=== PATIENT | female | born 2000 | race Hispanic/Latino ===

== ENCOUNTER 2022-11-20 23:29 | Emergency (ER) | payer SELFPAY ==
[2022-11-20 23:36] VITALS: BP 112/72; PULSE 72; RESP 14; TEMP 36.8; O2SAT 100
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
[2022-11-21 01:27] LABS: Basophils Percent Auto 0.3 % (0.2-1.2); Eosinophils Absolute Auto 0.1 K/mm3 (0-0.3); Hematocrit 40.3 % (37.0-47.0); Hemoglobin 14.1 g/dL (12.0-15.0); Immature Granulocyte Absolute 0.02 K/mm3 (0.00-0.031); Immature Granulocyte Percent A 0.3 % (0-0.5); Lymphocytes Absolute Auto 1.69 K/mm3 (0.9-3.2); Lymphocytes Percent Auto 21.9 % (18.3-44.2); Mean Corpuscular Hemoglobin 31.5 pg (26-34); Mean Corpuscular Volume 90.2 fl (80-100); Mean Platelet Volume 10.5 fl (7.4-10.4); Monocytes Absolute Auto 0.5 K/mm3 (0.1-0.6); Monocytes Percent Auto 6.9 % (2.6-8.5); Neutrophils Absolute Auto 5.4 K/mm3 (1.3-6.7); Neutrophils Percent Auto 69.6 % (45.5-73.1); Platelet Count Result 216 k/mm3 (150-375); Red Blood Count 4.47 M/mm3 (4.2-5.4); Red Cell Distribution Width 12.2 % (11.5-14.5); White Blood Count 7.7 K/mm3 (4.5-10.0)
[2022-11-21 01:42] LABS: Anion Gap 10 mmol/L (8-16); Blood Urea Nitrogen 13 mg/dL (7-17); Calcium 8.9 mg/dL (8.4-10.2); Carbon Dioxide 24 mmol/L (22-30); Chloride 105 mmol/L (98-107); Estimated CRCL calculation 116 ml/min; Estimated Glomerular Filt Rate > 60; Glucose 90 mg/dL (65-110); Potassium 3.4 mmol/L (3.4-5.0); Sodium 139 mmol/L (137-145)
[2022-11-21 01:43] LABS: Appearance Urine Cloudy (Clear); Bilirubin Urine Negative (Negative); Blood Urine 3+ (Negative); Color Urine Yellow (Yellow); Glucose Urine UA Negative (Negative); Ketones Urine Negative (Negative); Leukocyte Esterase Ur 1+ LEU/UL (Negative); Nitrate Urine Negative (Negative); Protein Urine 1+ mg/dL (Negative); Specific Grav Ur 1.025 (1.001-1.035); Urobilinogen Urine 0.2 mg/dL (<2.0)
[2022-11-21 01:49] LABS: Mucus Urine Rare /lpf; Squamous Epithelial Cell Urine Many /hpf (Few); WBC Urine 51-75 /hpf
[2022-11-21 02:04] LABS: Influenza A QL RT-PCR Negative (Negative); Influenza B QL RT-PCR Negative (Negative); SARS-CoV-2 RNA PCR Negative
[2022-11-21 02:16] LABS: Add Urine Microscopic? YES
[2022-11-21 02:34] LABS: Acetaminophen < 10 ug/mL (10-30); Ethanol < 10 mg/dL (<10); Salicylate < 1.0 mg/dL (2-20)
[2022-11-21 02:40] LABS: Amphetamine Screen Urine Negative (Negative); Barbiturate Screen Urine Negative (Negative); Benzodiazepines Screen Urine Negative (Negative); Cannabinoid Screen Urine Negative (Negative); Cocaine Screen Urine Negative (Negative); Methadone Screen Urine Negative (Negative); Opiate Screen Urine Negative (Negative); Phencyclidine Screen Urine Negative (Negative)
--- NOTE | 2022-11-21 02:59 | PC.NURSE ---
alberto jackscre[employer] worker called to evaluate patient
[2022-11-21 03:08] VITALS: BP 109/69; PULSE 77; RESP 18; TEMP 36.6; O2SAT 99
--- NOTE | 2022-11-21 03:08 | PC.NURSE ---
Pt resting comfortably inbed, Updted pt on plan of care, sitter at bedside. Awaiting domestic laundry worker.
--- NOTE | 2022-11-21 04:13 | PC.NURSE ---
Crisis here to evaluate pt.
[2022-11-21 06:15] VITALS: BP 105/69; PULSE 66; RESP 18; TEMP 36.6; O2SAT 99
== END 2022-11-21 06:16 | disposition home or self-care (01) ==
PROVIDERS: Emergency Provider Physician Assistant; PCP Emergency Medicine
DX: S51.812A Laceration without foreign body of left forearm, initial encounter (principal); Z20.822 Contact with and (suspected) exposure to COVID-19; X78.8XXA Intentional self-harm by other sharp object, initial encounter
CPT/HCPCS: 36415; 80048; 80307; 81001; 84443; 85025; 87086; 87636; 99284